=== PATIENT | female | born 1960 | race Caucasian/White ===

== ENCOUNTER → 2017-05-08 | Emergency (ER) | payer OTHER ==
[~2017-05-08] VITALS: Ht 165.1 cm; Wt 67.2 kg
[~2017-05-08] MED LIST: MACROBID 100 M100 MG PO; PYRIDIUM200 MG PO; ULTRAM50 MG PO; ZOFRAN8 MG PO; [UNRECOGNIZED DRUG - OTHER]
[2017-05-08 18:23] VITALS: BP 143/81
== END | disposition home or self-care (01) ==
LOC: FSED 17:16
DX: R30.0 Dysuria (principal); N30.91 Cystitis, unspecified with hematuria
CPT/HCPCS: 81025; 99283

== ENCOUNTER → 2017-05-31 | Outpatient (CLI) | payer OTHER ==
--- NOTE | 2017-06-09 08:25 | Diagnostic Imaging Report ---
#[id number] - [facility] #BILATERAL DIGITAL SCREENING MAMMOGRAM WITH CAD: 05/31/2017 CLINICAL: Routine screening. Current study contains 7 films. The tissue of both breasts is heterogeneously dense. This may lower the sensitivity of mammography. Current study was also evaluated with a Computer Aided Detection (CAD) system. There are benign vascular calcifications in the right breast. There also are post operative findings in the right breast with a scar marker present. No significant masses, calcifications, or other findings are seen in either breast. There has been no significant interval change. IMPRESSION: BENIGN There is no mammographic evidence of malignancy. A 1 year screening mammogram is recommended. The patient will be notified by letter of the results. Channing Bernabe Jr., D.O. cw/:06/08/2017 13:56:30 Commercial Accountant: Kami ROSEN)([place]iqu[place]), [facility] letter sent: Compared to Prior B9 Mammogram BI-RADS: 2 Benign
== END ==
LOC: MAMMO 13:36
PROVIDERS: ATTEND Internal Medicine
DX: Z12.31 Encounter for screening mammogram for malignant neoplasm of breast (principal)

== ENCOUNTER → 2017-06-08 | Outpatient (RCR) | payer OTHER | LOC: PT 06-02 13:08 | PROVIDERS: ATTEND Orthopaedic Surgery | DX: S33.5XXA Sprain of ligaments of lumbar spine, initial encounter (principal); M47.816 Spondylosis without myelopathy or radiculopathy, lumbar region ==

== ENCOUNTER 2017-07-05 13:00 | Outpatient (RCR) | payer OTHER | END 2017-07-09 | LOC: PT 13:00 | PROVIDERS: ATTEND Orthopaedic Surgery | DX: S33.5XXA Sprain of ligaments of lumbar spine, initial encounter (principal); M47.816 Spondylosis without myelopathy or radiculopathy, lumbar region ==

== ENCOUNTER → 2017-08-09 | Outpatient (CLI) | payer OTHER ==
--- NOTE | 2017-08-09 15:00 | Diagnostic Imaging Report ---
PROCEDURE:CHEST 2 VIEWS TECHNIQUE:PA and lateral chest INDICATION:Preoperative evaluation for carpal tunnel surgery COMPARISON:None. FINDINGS: The lungs, cardiomediastinal silhouette and skeleton are normal. CONCLUSION: Normal study. Dictated by: Hema Fernandez M.D. on 08/09/2017 at 15:02 Electronically approved by: Hema Fernandez M.D. on 08/09/2017 at 15:02
== END ==
LOC: RAD 14:28
PROVIDERS: ATTEND Internal Medicine
DX: Z01.818 Encounter for other preprocedural examination (principal)
CPT/HCPCS: 71046

== ENCOUNTER → 2017-10-17 | Outpatient (CLI) | payer OTHER ==
--- NOTE | 2017-10-17 13:57 | Diagnostic Imaging Report ---
PROCEDURE:X-RAY LUMBAR SPINE, TWO VIEWS COMPARISON:Lumbar spine MRI dated 12/28/16 INDICATIONS:BACK PAIN, SURGERY IN MARCH ON LUMBAR SPINE FINDINGS: There are 5 lumbar-type vertebral bodies. Status post posterior fusion of L4-S1 with discectomy. Grade 1 retrolisthesis of L5 in relation to L4. Hardware is intact. There is normal alignment of the remainder of the lumbar spine vertebral bodies. There are no fractures, lytic or blastic lesions. The sacroiliac joints are unremarkable. CONCLUSION: Status post posterior fusion of L4-S1. Intact hardware. Stable grade 1 retrolisthesis of L5 in relation to L4. Dictated by: Edouard Boyer M.D. on 10/17/2017 at 14:01 Electronically approved by: Edouard Boyer M.D. on 10/17/2017 at 14:01
== END ==
LOC: RAD 11:52
PROVIDERS: ATTEND Orthopaedic Surgery
DX: S33.5XXA Sprain of ligaments of lumbar spine, initial encounter (principal); M96.1 Postlaminectomy syndrome, not elsewhere classified
CPT/HCPCS: 72100